=== PATIENT | female | born 1940 | race Caucasian/White ===

== ENCOUNTER 2023-03-08 00:08 | Emergency (ER) | payer MEDICARE, OTHER ==
[~2023-03-08] VITALS: Ht 157.5 cm; Wt 61.2 kg
[~2023-03-08 00:08] MED LIST: ACET500 PO; ASPI325 PO; CHOLESTYRAMI239.4 G1 PO; CLARITIN10 MG PO; DICLOFENAC SOD100 GM TOP; DULO30 PO; DULO60 PO; FURO20 PO; Flonase 0.05% N16 GM; LEVSOD112 PO; LIDO5TO TOP; OMEP20ER PO; OXYC5 PO; PROP10 PO; QUET25 PO; Robaxin750 MG PO; ZOCOR20 MG PO
== END 2023-03-08 03:00 | disposition home or self-care (01) ==
LOC: ER 00:08
DX: M54.9 Dorsalgia, unspecified (principal); J45.909 Unspecified asthma, uncomplicated; F03.90 Unspecified dementia, unspecified severity, without behavioral disturbance, psychotic disturbance, mood disturbance, and anxiety; E03.9 Hypothyroidism, unspecified; E78.5 Hyperlipidemia, unspecified; N18.9 Chronic kidney disease, unspecified; K21.9 Gastro-esophageal reflux disease without esophagitis; Z88.8 Allergy status to other drugs, medicaments and biological substances; Z79.82 Long term (current) use of aspirin; Z79.899 Other long term (current) drug therapy; W19.XXXA Unspecified fall, initial encounter
CPT/HCPCS: 71045; 99283-25